=== PATIENT | female | born 1980 | race Caucasian/White ===

== ENCOUNTER 2023-06-15 09:42 | Emergency (ER) | payer BC ==
[2023-06-15 10:17] LABS: Absolute Basophils 0.1 K/uL (0-0.5); Absolute Eosinophils 0.1 K/uL (0-0.5); Absolute Lymphocytes (CBC) 3.1 K/uL (0.7-4.9); Absolute Monocytes 0.6 K/uL (0.1-1.3); Absolute Neutrophil 3.2 K/uL (1.8-8.0); Eosinophils % 1.6 % (0-4.4); Hematocrit 39.9 % (36.0-45.0); Hemoglobin 13.8 g/dL (12.0-15.0); Lymphocytes % 43.6 % (15.3-44.8); MCH 28.9 pg (27.0-35.0); MCHC 34.7 g/dL (32.0-36.0); MCV 83.4 fL (80-100); Monocytes % 9.1 % (3.3-12.3); Neutrophils % 44.7 % (41.7-73.7); Nucleated Red Blood Cells % 0.1 % (0-0); Platelets 306 thou/uL (152-406); RBC Red Blood Cell Count 4.78 M/uL (3.86-4.86); Red Cell Distribution Width 13.1 % (12.1-15.2)
[2023-06-15 10:24] LABS: PT Prothrombin Time 11.7 SECONDS (9.5-12.5); Protime INR 1.07
[2023-06-15 10:37] LABS: Anion Gap 11.5 mEq/L (5.0-15.0); BUN Blood Urea Nitrogen 8 mg/dL (7-18); Bicarbonate 24 mEq/L (21-32); Glomerular Filtration Rate 89 ml/min (=/>90); Glucose Level 123 mg/dL (74-106); Potassium 3.5 mEq/L (3.5-5.1); Sodium Level 137 mEq/L (136-145)
[2023-06-15 10:38] LABS: Troponin High Sensitivity < 3.0 pg/mL (<58.9)
[2023-06-15 10:56] LABS: Specific Gravity 1.011 (1.005-1.030)
[2023-06-15 10:58] LABS: Specific Gravity 1.011 (1.005-1.030); Urine Bacteria None Seen /HPF (<20); Urine Bilirubin NEGATIVE (Negative); Urine Blood Negative (Negative); Urine Clarity Turbid (Clear); Urine Color Colorless (Yellow); Urine Culture Reflex Order NOT NEEDED; Urine Glucose NEGATIVE (Negative); Urine Ketones NEGATIVE (Negative); Urine Microscopic Reflex YN ORDER UMIC; Urine Mucus Slight /HPF (None Seen); Urine Nitrite NEGATIVE (Negative); Urine Protein NEGATIVE (Negative); Urine RBC <5 /HPF (None Seen); Urine Urobilinogen Normal (Normal); Urine pH 5.5 (5.0-7.0)
--- NOTE | 2023-06-15 11:10 | RAD REPORT ---
EXAM DESCRIPTION: CT - Head Brain Wo Cont - 06/15/2023 10:57 am CLINICAL HISTORY: head injury COMPARISON: Head angio dated 06/15/2023 TECHNIQUE: Noncontrast head CT images were obtained without IV contrast. Multiplanar reformats were generated and reviewed. All CT scans are performed using dose optimization technique as appropriate and may include automated exposure control or mA/KV adjustment according to patient size. FINDINGS: Region of hypoattenuation with volume loss involving the right anterior temporal pole and right insula/ subinsular region, favored to represent sequelae of remote ischemia. No intracranial he morrhage, mass, or edema. Midline structures are unremarkable. Normal ventricular caliber for age, with some ex vacuo dilation of the right anterior temporal horn. Daniels-white matter differentiation is preserved, without evidence of acute infarct. No abnormal extra- axial fluid collections. Mastoid air cells and visualized portions of the paranasal sinuses are clear. No acute bony findings. IMPRESSION: No evidence of an acute intracranial process. Chronic findings as above.
[2023-06-15] MEDS ORDERED: ACETAMINOPHEN 325 MG TABLET ONE (11:33)
[2023-06-15] MEDS ORDERED: IBUPROFEN 400 MG TAB ONE (11:33)
--- NOTE | 2023-06-15 12:02 | RAD REPORT ---
EXAM DESCRIPTION: CT - Head angio - 06/15/2023 10:57 am CLINICAL HISTORY: seizure, headache COMPARISON: No comparisons TECHNIQUE: Axial CT angiography images of the head was performed with multiplanar and maximum intens ity projection reconstructions. Images performed following intravenous administration of 100mL Isovue 370. All CT scans are performed using dose optimization technique as appropriate and may include automated exposure control or mA/KV adjustment according to patient size. FINDINGS: No evidence of large vessel occlusion. No evidence of aneurysm or dissection flap is detec mateo. No flow-limiting stenosis or vascular malformation identified. Antegrade flow is seen in the vertebral arteries. The vertebral arteries are codominant. The visualized dural venous sinuses are grossly patent. IMPRESSION: No evidence of large vessel occlusion or flow-limiting stenosis.
--- NOTE | 2023-06-15 12:07 | RAD REPORT ---
EXAM DESCRIPTION: CT - Neck Angio - 06/15/2023 10:57 am CLINICAL HISTORY: headache, seizure COMPARISON: No comparisons TECHNIQUE: Axial CT angiography images of the neck was performed with multiplanar and maximum intens ity projection reconstructions. Images performed following intravenous administration of 100mL Isovue 370. All CT scans are performed using dose optimization technique as appropriate and may include automated exposure control or mA/KV adjustment according to patient size. Quantification of carotid stenosis, if any, is performed according to NASCET criteria. FINDINGS: A left aortic arch is identified with normal three vessel configuration of the great vesse ls. No significant flow abnormality is seen of the common carotid bilaterally. No significant stenosis is identified involving the cervical segments of both internal carotid arteri es. Normal flow is seen within both vertebral arteries. IMPRESSION: No significant flow abnormality of the neck vessels is identified. CAROTID STENOSIS REFERENCE USING NASCET CRITERIA: % ICA stenosis = (1 - narrowest ICA diameter/diameter of distal cervical ICA) x 100. Mild - <50% stenosis. Moderate - 50-69% stenosis. Severe - 70-94% stenosis. Near occlusion - 95-99% stenosis. Occluded - 100% stenosis.
--- NOTE | 2023-06-15 13:36 | ER ---
Nurse's Notes [facility] Name: Jennifer Hathaway Age: 42 yrs Sex: Female : 1980 Arrival Date: 06/15/2023 Time: 09:42 Bed 17 Private MD: Diagnosis: Other seizures Presentation: 06/14 09:47 Chief complaint: EMS states: New onset, witnessed seizure at home, family reports that ph it lasted approx 2-3 minutes, pt post-ictal when EMS arrived, tachycardic \T\ 150s, IV established and fluids given, pt more alert upon arrival to ED, c/o headache. Coronavirus screen: Vaccine status: Patient reports receiving the 2nd dose of the covid vaccine. Ebola Screen: No symptoms or risks identified at this time. Initial Sepsis Screen: Does the patient meet any 2 criteria? No. Patient's initial sepsis screen is negative. Does the patient have a suspected source of infection? No. Patient's initial sepsis screen is negative. Risk Assessment: Do you want to hurt yourself or someone else? Patient reports no desire to harm self or others. 09:47 Method Of Arrival: EMS: [facility] 09:47 Acuity: LUPE 2 ph 10:33 Onset of symptoms was June 15, 2023. Triage Assessment: 10:29 General: Appears in no apparent distress. uncomfortable. Pain: Complains of pain in ph headache. Neuro: Level of Consciousness is awake, alert, obeys commands, Oriented to person, place, time, situation. Cardiovascular: Capillary refill < 3 seconds in bilateral fingers Patient's skin is warm and dry. Rhythm is sinus tachycardia. Respiratory: Airway is patent Respiratory effort is even, unlabored. GI: No signs and/or symptoms were reported involving the gastrointestinal system. Patient currently denies abdominal pain, nausea, vomiting. Derm: Skin is pink, warm \T\ dry. Musculoskeletal: Circulation, motion, and sensation intact. Range of motion: intact in all extremities. Historical: - Allergies: 10:32 No Known Allergies; ph - Immunization history:: Adult Immunizations unknown. - Infectious Disease History:: Denies. - Family history:: not pertinent. - Hospitalizations: : No recent hospitalization is reported. - Social history:: Smoking status: unknown. Screenin:28 [facility] ED Fall Risk Assessment (Adult) History of falling in the last 3 months, ph including since admission Yes- physiologic fall (2 pts) Confusion or Disorientation No (0 pts) Intoxicated or Sedated No (0 pts) Impaired Gait No (0 pts) Mobility Assist Device Used No (0 pt) Altered Elimination No (0 pt) Score/Fall Risk Level 0 - 2 = Low Risk Oriented to surroundings, Maintained a safe environment, Hourly rounding (assess needs \T\ fall precautionary measures) done. Abuse screen: Denies threats or abuse. Denies injuries from another. Nutritional screening: No deficits noted. Tuberculosis screening: No symptoms or risk factors identified. Assessment: 11:10 General: Appears in no apparent distress. comfortable, well groomed. Pain: Complains of ph pain in head. Neuro: Level of Consciousness is awake, alert, obeys commands, Oriented to person, place, time, situation, Seizure activity reported prior to arrival. Cardiovascular: Capillary refill < 3 seconds in bilateral fingers Patient's skin is warm and dry. 14:07 Reassessment: Patient appears in no apparent distress at this time. Patient and/or as6 family updated on plan of care and expected duration. Pain level reassessed. Patient is alert, oriented x 3, equal unlabored respirations, skin warm/dry/pink. Vital Signs: 09:47 BP 137 / 68; Pulse 120; Resp 16; Temp 97.5; Pulse Ox 99% on R/A; Weight 88.45 kg; ph Height 5 ft. 4 in. ; 11:10 Pulse 100; Resp 18; Pulse Ox 100% on R/A; ph 14:07 BP 147 / 67; Pulse 88; Resp 18 S; Pulse Ox 98% on R/A; as6 09:47 Body Mass Index 33.47 (88.45 kg, 162.56 cm) ph ED Course: 09:43 Patient arrived in ED. rn 09:43 Michoacano Izaguirre MD is Attending Physician. rn 09:47 Susannah Yates RN is Primary Nurse. ph 09:50 Triage completed. ph 10:28 Arm band placed on Patient placed in an exam room, on a stretcher, on monitor technician, ph on pulse oximetry. 10:32 Maintain EMS IV. Dressing intact. Good blood return noted. Site clean \T\ dry. Gauge \T\ ph site: 18 RAC. 10:33 Patient has correct armband on for positive identification. Bed in low position. Call ph light in reach. Side rails up X2. Seizure precautions initiated. Client placed on continuous cardiac and pulse oximetry monitoring. NIBP monitoring applied. cardiac monitor on. 10:48 Test, Urine Sent. ph 10:48 Urinalysis w/ reflexes Sent. ph 10:58 CT Head Brain wo Cont In Process Unspecified. EDMS 10:[address] In Process Unspecified. EDMS 10:[address] In Process Unspecified. EDMS 13:36 Miguel Her MD is Referral Physician. rn 14:07 Provided Education on: follow up. as6 14:07 No provider procedures requiring assistance completed. IV discontinued, intact, as6 bleeding controlled, No redness/swelling at site. Pressure dressing applied. Administered Medications: 11:46 Drug: Acetaminophen PO 650 mg PO once Route: PO; ph 14:06 Follow up: Response: No adverse reaction as6 11:46 Drug: Ibuprofen PO 800 mg PO once Route: PO; ph 14:07 Follow up: Response: No adverse reaction as6 Medication: 10:33 VIS not applicable for this client. ph Outcome: 13:36 Discharge ordered by . rn 14:07 Discharged to home ambulatory, with significant other, as6 14:07 Condition: stable 14:07 Discharge instructions given to patient, significant other, Instructed on discharge instructions, follow up and referral plans. Demonstrated understanding of instructions, follow-up care, 14:08 Patient left the ED. as6 Signatures: Dispatcher [employer] EDNY Michoacano Izaguirre MD MD rn Hall, Patricia, RN RN ph Slawson, Ashby, RN RN as6
--- NOTE | 2023-06-15 13:36 | EDPHYS ---
Physician Documentation [facility] Name: Jenniefr Hathaway Age: 42 yrs Sex: Female : 1980 Arrival Date: 06/15/2023 Time: 09:42 Bed 17 Private MD: ED Physician Michoacano Izaguirre HPI: 06/14 09:51 This 42 yrs old Female presents to ER via EMS with complaints of Probable Seizure. rn 09:51 The patient presents after having a possible seizure episode. Seizure onset: just prior rn to arrival. Seizure Hx: the patient has no previous seizure history. Current symptoms: headache. The patient has not experienced similar symptoms in the past. Patient reports at home, had headache and ringing in her ears, felt bad so went to sit down at the couch and then does not recall what happened after that. Family member reports approximately 3-minute generalized seizure activity. No meds given by EMS. Patient reports an episode in the past where she presented with altered mental status, no definitive diagnosis made but told could have had a stroke at that time. Patient denies any new medication or cessation of medication. Patient currently reports headache with sensitivity to light.. Historical: - Allergies: 10:32 No Known Allergies; ph - Immunization history:: Adult Immunizations unknown. - Infectious Disease History:: Denies. - Family history:: not pertinent. - Hospitalizations: : No recent hospitalization is reported. - Social history:: Smoking status: unknown. ROS: 09:51 Constitutional: Negative for fever, chills, and weight loss, Eyes: Negative for injury, rn pain, redness, and discharge, Neck: Negative for injury, pain, and swelling, Cardiovascular: Positive for palpitations and feeling like heart is racing, negative for chest pain Respiratory: Negative for shortness of breath, cough, wheezing, and pleuritic chest pain, Abdomen/GI: Negative for abdominal pain, nausea, vomiting, diarrhea, and constipation, MS/Extremity: Negative for injury and deformity, Skin: Negative for injury, rash, and discoloration, Neuro: Positive for headache and possible seizure Exam: 09:51 Constitutional: This is a well developed, well nourished patient who is awake, alert, rn and in no acute distress. Head/Face: Normocephalic, atraumatic. Eyes: Pupils equal round and reactive to light, extra-ocular motions intact. ENT: Positive for evidence of bitten tongue, and no active bleeding Neck: No neck tenderness or meningismus. Chest/axilla: Normal chest wall appearance and motion. Nontender with no deformity. No lesions are appreciated. Cardiovascular: Tachycardic, regular. No pulse deficits. Respiratory: No increased work of breathing, no retractions or nasal flaring. Abdomen/GI: Soft, non-tender Skin: Warm, dry MS/ Extremity: Pulses equal, no cyanosis. Neuro: Awake and alert, GCS 15, oriented to person, place, time, and situation. Cranial nerves II-XII grossly intact. Motor strength 5/5 in all extremities. Sensory grossly intact. 10:24 ECG was reviewed by the Attending Physician. rn Vital Signs: 09:47 BP 137 / 68; Pulse 120; Resp 16; Temp 97.5; Pulse Ox 99% on R/A; Weight 88.45 kg; ph Height 5 ft. 4 in. ; 11:10 Pulse 100; Resp 18; Pulse Ox 100% on R/A; ph 14:07 BP 147 / 67; Pulse 88; Resp 18 S; Pulse Ox 98% on R/A; as6 09:47 Body Mass Index 33.47 (88.45 kg, 162.56 cm) ph MDM: 09:43 Patient medically screened. rn 10:36 ED course: Patient feeling better, ambulating to bathroom on her own.. rn 13:34 Differential diagnosis: cardiac arrhythmia, seizure, TIA, metabolic disorder. rn Differential diagnosis: Syncope. Data reviewed: vital signs, nurses notes, lab test result(s), EKG, radiologic studies, CT scan, and as a result, I will discharge patient. Counseling: I had a detailed discussion with the patient and/or guardian regarding the historical points, exam findings, and any diagnostic results supporting the discharge/admit diagnosis, lab results, radiology results, the need for outpatient follow up, to return to the emergency department if symptoms worsen or persist or if there are any questions or concerns that arise at home. Special discussion: I discussed with the patient/guardian in detail that at this point there is no indication for admission to the hospital. It is understood, however, that if the symptoms persist or worsen the patient needs to return immediately for re-evaluation. Further emergent ED testing is not indicated at this point in time. I discussed with the patient/guardian in detail the need to arrange with the PCP or specialist further outpatient testing, MRI, Based on the history and exam findings, there is no indication for further emergent testing or inpatient evaluation. I discussed with the patient/guardian the need to see the neurologist for further evaluation of the symptoms. I discussed with the patient/guardian the need to see the primary care provider for further evaluation of the symptoms. ED course: Patient completely back to baseline. Most likely had first seizure. Spoke at length with patient and spouse, recommend neurology follow-up and will not start on antiepileptic medication at this time until she proves that she requires them with another episode to avoid unnecessary medication and side effect profile. Family and patient understand this and are in agreement. No acute findings and workup today. Cardiac workup negative. CT head and CT angio head of neck negative. I have personally reviewed all of the results, including but not limited to blood tests and imaging deemed necessary to safely discharge this patient at this time. All results given to and printed out for patient. I personally went over all the results with the patient and answered all questions. Patient will follow-up with PCP and or specialist as discussed. Return precautions given and understood.. 06/14 09:48 Order name: CBC with Diff; Complete Time: 10:06/14 09:48 Order name: Basic Metabolic Panel; Complete Time: 10:40 06/14 09:48 Order name: Protime (+inr); Complete Time: 10:06/14 09:48 Order name: Ptt, Activated; Complete Time: 10:06/14 09:48 Order name: Test, Urine; Complete Time: 11:06/14 09:48 Order name: Urinalysis w/ reflexes; Complete Time: 11:06/14 09:48 Order name: Troponin High Sensitivity; Complete Time: 10:40 06/14 09:47 Order name: CT Head Brain wo Cont; Complete Time: 11:06/14 09:47 Order name: Head Angio CT; Complete Time: 12:12 06/14 09:47 Order name: Neck Angio CT; Complete Time: 12:12 06/14 09:48 Order name: IV Start; Complete Time: 10:33 06/14 09:48 Order name: EKG - Nurse/Tech; Complete Time: 10:48 rn 06/14 09:48 Order name: Cardiac monitoring; Complete Time: 09:50 rn EC:24 Rate is 112 beats/min. Rhythm is regular. QRS Toutle is Normal. NC interval is normal. rn QRS interval is normal. QT interval is normal. No Q waves. T waves are Normal. No ST changes noted. Clinical impression: Sinus tachycardia. Interpreted by me. Reviewed by me. Administered Medications: 11:46 Drug: Acetaminophen PO 650 mg PO once Route: PO; ph 14:06 Follow up: Response: No adverse reaction as6 11:46 Drug: Ibuprofen PO 800 mg PO once Route: PO; ph 14:07 Follow up: Response: No adverse reaction as6 Disposition Summary: 06/15/23 13:36 Discharge Ordered Notes: Location: Home rn Problem: new rn Symptoms: have improved rn Condition: Stable rn Diagnosis - Other seizures rn Followup: rn - With: Miguel Her MD - When: As needed - Reason: Recheck today's complaints, Re-evaluation by your physician Discharge Instructions: - Discharge Summary Sheet rn - Seizure, Adult rn Forms: - Medication Reconciliation Form rn - Thank You Letter rn - Antibiotic paramedic rn - Prescription Opioid Use rn - Patient Portal Instructions rn - Leadership Thank You Letter rn Signatures: Dispatcher [employer] Michoacano Corral MD MD rn Hall, Patricia, RN RN Yazan Singh RN as6 Corrections: (The following items were deleted from the chart) 09:48 09:48 CBC+H.LAB.BRZ ordered. EDMS EDMS 09:48 09:48 BASIC METABOLIC PANEL+C.LAB.BRZ ordered. EDMS EDMS 09:48 09:48 PROTIME (+INR)+COAG.LAB.BRZ ordered. EDMS EDMS 09:48 09:48 PTT, ACTIVATED+COAG.LAB.BRZ ordered. EDMS EDMS 09:48 09:48 Test, Urine+UC.LAB.BRZ ordered. EDMS EDMS 09:48 09:48 Urinalysis+U.LAB.BRZ ordered. EDMS EDMS 09:48 09:48 Troponin High Sensitivity+C.LAB.BRZ ordered. EDWA EDMS 13:35 13:34 ED course: Patient completely back to baseline. Most likely had first seizure. rn Spoke at length with patient and spouse, recommend neurology follow-up and will not start on antiepileptic medication at this time until she proves that she requires them with another episode to avoid unnecessary medication and side effect profile. Family and patient understand this and are in agreement. No acute findings and workup today. Cardiac workup negative. CT head and CT angio head of neck negative.. rn
[2023-06-15 14:34] VITALS: BP 147/67; TEMP 97.5; O2SAT 98
== END 2023-06-15 14:08 | disposition home or self-care (01) ==
LOC: ER 09:42
DX: R56.9 Unspecified convulsions (principal); R51.9 Headache, unspecified
CPT/HCPCS: 93005; 85025; 81001; 80048; 36415; 81025; 85610; 85730; 84484; 70450; 70496; 70498; 99284; Q9967